=== PATIENT | female | born 1985 | race Caucasian/White ===

== ENCOUNTER 2020-01-20 12:40 | Emergency (ER) | payer OTHER, SELFPAY ==
--- NOTE | ~2020-01-20 | XR_ITS ---
EXAMINATION: XR chest 1V portable INDICATION: Cough, tobacco use TECHNIQUE: Portable AP chest at 1335 hours COMPARISON: None available FINDINGS: Bibasilar airspace opacities are present, right greater than left. No pleural effusion or p neumothorax is identified. The cardiomediastinal silhouette is normal. The visualized osseous structu res are unremarkable. IMPRESSION: 1. Bibasilar airspace opacities, right greater than left, consistent with atelectasis versus pneumoni a. Reviewed, dictated and finalized at location A. IMPRESSION: 1. Bibasilar airspace opacities, right greater than left, consistent with atele ctasis versus pneumonia.
[2020-01-20 12:48] VITALS: BP 143/91; PULSE 77; RESP 14; TEMP 36.8; O2SAT 100
--- NOTE | 2020-01-20 13:07 | ED.GENADULT ---
HPI - General Adult General Chief complaint: Unspecified <DINA Oquendo Last Filed: 01/20/20 13:58> Stated complaint: Cough x1 year <DINA Oquendo Last Filed: 01/20/20 13:58> Time Seen by Provider: 01/20/20 12:57 <DINA Oquendo Last Filed: 01/20/20 13:58> Source: patient <DINA Oquendo Last Filed: 01/20/20 13:58> Mode of arrival: ambulatory <DINA Oquendo Last Filed: 01/20/20 13:58> Limitations: no limitations <DINA Oquendo Last Filed: 01/20/20 13:58> History of Present Illness HPI narrative: Patient is a 34-year-old female who presents with 1 year duration of intermittent cough which she attributes to the work environment allergens she is exposed to patient works in a warehouse patient on arrival to emergency department is in the room in no distress notes the last night she had a coughing fit resulting in emesis patient took Singulair and Flonase with improvement patient is followed by primary care patient on arrival in the room in no distress patient with history of tobacco abuse denies other URI symptoms or sick contacts <DINA Oquendo Last Filed: 01/20/20 13:58> Related Data Home medications: Home Medications Medication Instructions Recorded Confirmed fluticasone propionate [Flonase INTRANASAL 01/20/20 Allergy Relief] [id number] fum-folic ac tablet PO 01/20/20 [Monocaps] topiramate PO 01/20/20 <DINA Oquendo Last Filed: 01/20/20 13:58> Allergies/adverse reactions: Allergies Allergy/AdvReac Type Severity Reaction Status Date / Time codeine Allergy Unknown Verified 01/20/20 12:53 <DINA Oquendo Last Filed: 01/20/20 13:58> Review of Systems Review of Systems: All systems reviewed & are unremarkable except as noted in HPI and below <DINA Oquendo Last Filed: 01/20/20 13:58> FORMERLY [facility], [facility] Social History Social History: Social History (Updated 01/20/20 @ 13:09 by Matthew Acuna PA-C) Smoking status: Current every day smoker Gender identity (if verbalized by the patient): Female <Matthew Acuna PA-C - Last Filed: 01/20/20 13:58> Exam Narrative: Exam Narrative: GENERAL: Well-appearing, well-nourished, and in no acute distress. HEAD: Normocephalic, atraumatic. EYES: PERRLA and EOMI. ENT: Nares clear, no rhinorrhea or epistaxis. Mucous membranes moist. CHEST: Clear to auscultation. No respiratory distress. No wheezes rales or rhonchi HEART: Regular rate and rhythm. No murmur heard. EXTREMITIES: Normal range of motion. No edema. SKIN: Warm, dry, no rash. NEURO: No focal deficits. Alert and oriented x3. PSYCH: Normal mood and affect. <Matthew Acuna PA-C - Last Filed: 01/20/20 13:58> Course Course Emergency Course: Patient in the room in no distress felt appropriate for outpatient reevaluation normal vital signs no high risk changes in the imaging advised to follow with primary care. Patient will also be tested for COVID <Matthew Acuna PA-C - Last Filed: 01/20/20 13:58> Vital Signs Vital signs: Vital Signs Temperature 98.2 F 01/20/20 12:48 Pulse Rate 77 01/20/20 12:48 Respiratory Rate 14 01/20/20 12:48 Blood Pressure 143/91 H 01/20/20 12:48 Pulse Oximetry 100 01/20/20 12:48 Temperature 98.2 F 01/20/20 12:48 Pulse Rate 77 01/20/20 12:48 Respiratory Rate 14 01/20/20 12:48 Blood Pressure 143/91 H 01/20/20 12:48 Pulse Oximetry 100 01/20/20 12:48 <Matthew Acuna PA-C - Last Filed: 01/20/20 13:58> Vital Signs Temperature 98.2 F 01/20/20 12:48 Pulse Rate 77 01/20/20 12:48 Respiratory Rate 14 01/20/20 12:48 Blood Pressure 143/91 H 01/20/20 12:48 Pulse Oximetry 100 01/20/20 12:48 Temperature 98.2 F 08/05/20 12:48 Pulse Rate 77 01/20/20 12:48 Respiratory Rate 14 01/20/20 12:48 Blood Pressure 143/91 H 01/20/20 12:48 P
[2020-01-20 22:54] LABS: SARS-CoV-2 RNA PCR Negative
== END 2020-01-20 14:50 | disposition home or self-care (01) ==
PROVIDERS: Emergency Medicine Emergency Medical Services; Emergency Provider General Practice; PCP Emergency Medicine
DX: J18.9 Pneumonia, unspecified organism (principal); F17.210 Nicotine dependence, cigarettes, uncomplicated; Z20.828 Contact with and (suspected) exposure to other viral communicable diseases
CPT/HCPCS: 71045; 87635; 99283; C9803; U0003

== ENCOUNTER 2020-02-03 13:24 | Outpatient (CLI) | payer OTHER, SELFPAY ==
--- NOTE | ~2020-02-03 | XR_ITS ---
EXAMINATION: XR chest 2V DATE: 02/03/2020 13:55 INDICATION: Pneumonia follow-up TECHNIQUE: PA and lateral views of the chest are obtained. COMPARISON: 01/20/2020 FINDINGS: Bibasilar airspace opacities have resolved. The lungs are free of acute opacities. There is no pleural effusion or pneumothorax. The cardiomediastinal silhouette is normal. The visualized bone s and soft tissues are unremarkable. IMPRESSION: 1. Resolved pneumonia. Reviewed, dictated and finalized at location A. IMPRESSION: 1. Resolved pneumonia.
== END 2020-02-03 13:25 | disposition home or self-care (01) ==
PROVIDERS: PCP Emergency Medicine; Visit Provider Emergency Medicine
DX: J18.9 Pneumonia, unspecified organism (principal)
CPT/HCPCS: 71046

== ENCOUNTER 2020-08-19 14:09 | Emergency (ER) | payer OTHER, SELFPAY ==
[2020-08-19 14:13] VITALS: BP 135/97; PULSE 86; RESP 14; TEMP 36.9; O2SAT 100
--- NOTE | 2020-08-19 14:43 | ED.HA ---
HPI - Headache General Chief Complaint: Headache Stated Complaint: headache Time Seen by Provider: 08/19/20 14:43 Source: patient Mode of arrival: ambulatory Limitations: no limitations History of Present Illness HPI Narrative: Patient is a 35-year-old female complaining of a migraine headache, 8 out of 10, throbbing, nonradiating, started approximately 3 days ago. Patient states that this is her typical migraine headache. Patient denies any speech or visual disturbance, weakness, numbness, unsteady gait, neck stiffness or pain, fever, chills or rash. Related Data Home Medications Medication Instructions Recorded Confirmed fluticasone propionate [Flonase INTRANASAL 01/20/20 Allergy Relief] [id number]-[id number] fum-folic ac tablet PO 01/20/20 [Monocaps] topiramate PO 01/20/20 Allergies Allergy/AdvReac Type Severity Reaction Status Date / Time codeine Allergy Unknown Verified 08/19/20 14:33 Review of Systems Review of Systems: All systems reviewed & are unremarkable except as noted in HPI and below Constitutional: Constitutional: Denies body ache(s), Denies chills, Denies excessive sweating, Denies fatigue, Denies fever(s), Denies headache(s), Denies lethargy, Denies malaise, Denies weakness and Denies weight loss Eyes: Eyes: Denies blurry vision, Denies change in vision and Denies loss of vision ENT: Denies dizziness, Denies ear discharge, Denies headache(s), Denies lip swelling, Denies epistaxis, Denies nasal congestion, Denies neck pain, Denies throat swelling and Denies tongue swelling Cardiovascular: Cardiovascular: Denies chest pain, Denies chest pain at rest, Denies chest pain with activity, Denies diaphoresis, Denies rapid heart rate, Denies edema, Denies irregular heart rhythm, Denies lightheadedness, Denies palpitations, Denies dyspnea and Denies dyspnea on exertion Respiratory: Respiratory: Denies chest congestion, Denies cough, Denies hemoptysis, Denies dyspnea and Denies dyspnea on exertion Gastrointestinal: Gastrointestinal: Denies abdominal pain, Denies melena, Denies hematochezia, Denies diarrhea, Denies nausea, Denies vomiting and Denies hematemesis Musculoskeletal: Musculoskeletal: Denies abnormal gait, Denies deformity, Denies joint swelling, Denies limited range of motion, Denies neck pain and Denies numbness Neurologic: Denies Abnormal speech present, Denies abnormal gait, Denies confusion, Denies dizziness, Denies focal weakness, Denies loss of vision, Denies numbness, Denies Other visual disturbances, Denies Sensory deficit (Neuro) and Denies weakness Psychiatric: Psychiatric: Denies confusion, Denies depression, Denies auditory hallucinations, Denies homicidal ideation and Denies suicidal ideation Endocrine: Endocrine: Denies cold intolerance, Denies excessive sweating, Denies fatigue, Denies heat intolerance and Denies palpitations Hematologic/Lymphatic: Hematologic/Lymphatic: Denies easy bleeding and Denies easy bruising Allergic/Immunologic: Allergic/Immunologic: Denies lip swelling, Denies throat swelling and Denies tongue swelling PMFSH Social History Social History Smoking status: Current every day smoker Gender identity (if verbalized by the patient): Female Exam Const: General: cooperative, healthy appearing, comfortable, no acute distress, well developed, alert and awake; No confusion Orientation/consciousness: oriented to person, oriented to place, oriented to time, patient oriented x3 and No confusion Limitations: no limitations HENMT: Head: normal to inspection, normocephalic and atraumatic Ears: hearing grossly normal bilaterally, TM normal on the right and TM normal on the left General nose exam: Normal external nose present, Normal nares present and No nasal discharge present Face and sinus: normal facial exam Mouth: Yes Normal oral and palatal mucosa present, Yes lip normal, Yes tongue normal and Yes oropharynx
[2020-08-19 14:45] VITALS: BP 133/87; O2SAT 100
[2020-08-19 14:46] VITALS: O2SAT 99
[2020-08-19] MEDS: SODIUM CHLORIDE 0.9% IV 1,000 ML 999 ML IV CONT (15:23)
[2020-08-19] MEDS: diphenhydrAMINE HCl INJ 50 MG/ML VIAL 25 MG IV PUSH (15:23)
[2020-08-19] MEDS: METOCLOPRAMIDE HCL INJ 10 MG/2 ML VIAL IV PUSH (15:23)
[2020-08-19] MEDS: SUMAtriptan SUCCINATE 6 MG/0.5 ML VIAL SUB-Q (15:24)
--- NOTE | 2020-08-19 15:27 | PC.NURSE ---
pt states told her that she did not need test
[2020-08-19 16:34] VITALS: BP 137/95; PULSE 61; RESP 16; O2SAT 99
[2020-08-19 17:05] VITALS: BP 134/87; PULSE 69; RESP 18; O2SAT 99
== END 2020-08-19 17:07 | disposition home or self-care (01) ==
PROVIDERS: Emergency Provider Emergency Medicine; PCP Emergency Medicine
DX: G43.909 Migraine, unspecified, not intractable, without status migrainosus (principal); F17.200 Nicotine dependence, unspecified, uncomplicated
CPT/HCPCS: 96361; 96372; 96374; 96375; 99284; J1200; J2765; J3030; J7030